=== PATIENT | female | born 1985 | race Caucasian/White ===

== ENCOUNTER 2017-07-02 10:02 | Emergency (ER) | payer SELFPAY ==
[2017-07-02 11:12] VITALS: BP 146/86
[2017-07-02 12:06] LABS: Bilirubin,Urine NEG (Negative); Blood,Urine SM (Negative); Color,Urine Straw (Yellow); Mucus,Urine FEW /HPF; Protein,Urine <15 mg/dL mg/dL (Negative); Urobilinogen,Urine < 2.0 mg/dL (<2.0)
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
[2017-07-02 13:10] LABS: Basophils % (Auto) 0.3 % (0.0-1.8); Eosinophils % (Auto) 0.3 % (0.0-4.3); Hematocrit 39.8 % (30.3-42.9); Hemoglobin 13.1 gm/dl (10.1-14.3); Lymphocytes % (Auto) 16.2 % (13.4-35.0); Mean Corpuscular HGB Conc 33 % (30-34); Mean Corpuscular Hemoglobin 29 pg (28-32); Mean Corpuscular Volume 87 fl (79-97); Monocytes # (Auto) 0.5 K/mm3 (0.0-0.8); Monocytes % (Auto) 4.1 % (0.0-7.3); Platelet Count 372 K/mm3 (140-440); Red Blood Count 4.57 M/mm3 (3.65-5.03); Red Cell Distribution Width 12.8 % (13.2-15.2)
[2017-07-02 13:45] LABS: BUN/Creatinine Ratio 23; Blood Urea Nitrogen 9 mg/dL (7-17); Calcium 9.3 mg/dL (8.4-10.2); Hemolysis Index 10
--- NOTE | 2017-07-02 14:01 | Emergency Department Report ---
HPI - General Chief Complaint: Abdominal Pain Time Seen by Provider: 07/02/17 12:09 - HPI HPI: Patient is a 32-year-old who presents to ED at approximately 8 weeks gestation fits her last menstrual period is 05/05/2017 complaining of lower pelvic cramping for the past 3 days. She denies fevers chills nausea vomiting abdominal pain dysuria diarrhea, vaginal bleeding or discharge ED Past Medical Hx - Past Medical History Previous Medical History?: No - Surgical History Past Surgical History?: No - Social History Smoking Status: Never Smoker Substance Use Type: None - Medications Home Medications: Home Medications Medication Instructions Recorded Confirmed Last Taken Type Acetaminophen [Tylenol Extra 500 mg PO TID #30 tablet 07/02/17 Unknown Rx Strength] ED Review of Systems ROS: Stated complaint: ABDOMINAL PAIN Other details as noted in HPI Constitutional: denies: chills, fever Eyes: denies: eye pain, eye discharge, vision change ENT: denies: ear pain, throat pain Respiratory: denies: cough, shortness of breath, wheezing Cardiovascular: denies: chest pain, palpitations Endocrine: no symptoms reported Gastrointestinal: denies: abdominal pain, nausea, diarrhea Genitourinary: denies: urgency, dysuria, discharge Musculoskeletal: denies: back pain, joint swelling, arthralgia Skin: denies: rash, lesions Neurological: denies: headache, weakness, paresthesias Psychiatric: denies: anxiety, depression Hematological/Lymphatic: denies: easy bleeding, easy bruising Physical Exam - Physical Exam Vital Signs: Vital Signs 07/02/17 07/02/17 11:08 11:12 Temperature 98 F Pulse Rate 74 Respiratory 16 Rate Blood Pressure 146/86 [Right] O2 Sat by Pulse 99 Oximetry Physical Exam: GENERAL: Alert and oriented x3, no apparent distress, Normal Gait, atraumatic. HEAD: Head is normocephalic and a-traumatic. EYES: Extra ocular muscles are intact. Pupils are equal, round, and reactive to light and accommodation. LUNGS: Symetrical with respiration, No wheezing, no rales or crackles, CTAB. HEART: S1, S2 present, regular rate and rhythm without murmur, no rubs, no gallops. Non tender to palpation ABDOMEN: No organomegaly was noted,Positive bowel sounds, soft, and non- distended. . Nontender to palpation on all Quadrants, NO CVA tenderness. BACK: Full range of motion, no spinal tenderness, nontender to palpation. SKIN: Warm and dry, No lesions, No ulceration or induration present. ED Course Vital Signs 07/02/17 07/02/17 11:08 11:12 Temperature 98 F Pulse Rate 74 Respiratory 16 Rate Blood Pressure 146/86 [Right] O2 Sat by Pulse 99 Oximetry ED Medical Decision Making - Lab Data Result diagrams: 07/02/17 12:37 07/02/17 12:37 - Radiology Data Radiology results: report reviewed, image reviewed - Medical Decision Making 32-year-old female presents to ED with pelvic cramping in ED course: Pt received ultra sound, CBC, urinalysis, test and quantitative in the ED All labs within normal limits, Patient is followed by an DOC[facility] , referrals given Ultrasound shows single unit. cephalexin 2 days that her heart heartbeat of 177 and GGT of 02/15/2018 Discussed this findings with the patient. Discussed patient's increased water intake 8-10 glasses per day as this could help with Cramping in Vital signs normalized patient is in no acute distress. I discussed with the patient if follow-up with her DOC[facility]. I discussed all labs and ultrasound findings with the patient. I discussed with the patient that he if bleeding worsens or new symptoms develop to return to ED immediately Critical care attestation.: If time is entered above; I have spent that time in minutes in the direct care of this critically ill patient, excluding procedure time. ED Disposition Clinical Impression: Pelvic cramping in antepartum period Normal IUP (intrauterine ) on ultrasound Qualifiers: Trimester: first trimester Qualified Code(s): Z34.91 - Encounter for supervision of normal , unspecified, first trimester Disposition: DC-01 TO HOME OR SELFCARE Is pt being admited?: No Does the pt Need Aspirin: No Condition: Stable Instructions: Abdominal Pain (ED), (ED) Additional Instructions: Make sure to follow up with the obgyn as discussed. Take all your medications as you've been prescribed. If you have any worsening symptoms or develop new symptoms please return to ED immediately Make sure you're drinking enough fluids per day.. Prescriptions: Acetaminophen [Tylenol Extra Strength] 500 mg PO TID #30 tablet Referrals: SANDI PRASAD MD [Primary Care Provider] - 3-5 Days MAYA PEDRAZA MD [Referring] - 3-5 Days [facility] [Provider Group] - 3-5 Days [facility] [Provider Group] - 3-5 Days Forms: Accompanied Note, Work/School Release Form(ED) Time of Disposition: 16:16
--- NOTE | 2017-07-02 16:17 | Ultrasound Report ---
FINAL REPORT EXAM: US OB TRANSVAGINAL HISTORY: ABD PAIN/ 8 WKS TECHNIQUE: Transabdominal and transvaginal sonography of the pelvis. PRIORS: None. FINDINGS: There is a single, live intrauterine . Ultrasound estimated gestational age is 7 weeks 6 days. Ultrasound estimated date of delivery is 12 February 2018. heart motion is detected. Ovoid, cystic focus in left ovary measuring 1.6 x 1.4 x 1.6 cm. Remainder of uterus and adnexa are grossly unremarkable. IMPRESSION: 1. Single, live intrauterine . 2. Probable functional cystic change in the left ovary. Clinical correlation and followup pelvic ultrasound in 6-10 weeks advised to document resolution.
--- NOTE | 2017-07-02 16:19 | Ultrasound Report ---
FINAL REPORT EXAM: US OB < = 14 WEEKS FETUS HISTORY: ABDOMINAL TRAUMA,8 WKS TECHNIQUE: Transabdominal and transvaginal sonography of the pelvis. PRIORS: None. FINDINGS: There is a single, live intrauterine . Ultrasound estimated gestational age is 7 weeks 6 days. Ultrasound estimated date of delivery is 12 February 2018. heart motion is detected. Ovoid, cystic focus in left ovary measuring 1.6 x 1.4 x 1.6 cm. Remainder of uterus and adnexa are grossly unremarkable. IMPRESSION: 1. Single, live intrauterine . 2. Probable functional cystic change in the left ovary. Clinical correlation and followup pelvic ultrasound in 6-10 weeks advised to document resolution.
== END 2017-07-02 16:33 | disposition home or self-care (01) ==
LOC: ED 10:02
DX: O26.891 Other specified pregnancy related conditions, first trimester (principal); R10.2 Pelvic and perineal pain; Z3A.08 8 weeks gestation of pregnancy
CPT/HCPCS: 36415; 76801; 76817; 80048; 81001; 84702; 85025; 86900; 86901; 99284